=== PATIENT | male | born 1940 | race Caucasian/White ===

== ENCOUNTER 2023-03-12 09:41 | Emergency (ER) | payer SELFPAY ==
[2023-03-12] VITALS (10 sets, daily range): BP systolic 126–145; BP diastolic 64–114; PULSE 77–103; RESP 17–18; TEMP 36.6–37.3; O2SAT 96–98; BMI 28.5
--- NOTE | 2023-03-12 09:44 | ECG_ITS ---
APPROVED REPORT Exam: Resting ECG HR:99 bpm ECG Measurements Heart Rate 99 AXES QRSd 141 QRS 63 QT 365 T -25 QTc 421 Conclusion ATRIAL FIBRILLATION RIGHT BUNDLE BRANCH BLOCK [120+ ms QRS DURATION, UPRIGHT V1, 40+ ms S IN I/aVL/V4/V5/V6] ST DEVIATION AND MODERATE T-WAVE ABNORMALITY, CONSIDER LATERAL ISCHEMIA [-0.1+ mV T-WAVE IN I/aVL/V5/V6] ABNORMAL ECG UNCONFIRMED REPORT Electronically signed by : Tyler Haley MD 03/13/2023 17:45:49
--- NOTE | 2023-03-12 09:52 | CT_ITS ---
FINAL REPORT CLINICAL HISTORY: confusion FINDINGS: Axial images of the head were obtained without contrast. Coronal reformatted images were also obtained. This study was performed with techniques to keep radiation doses as low as reasonably achievable (ALARA). Individualized dose reduction techniques using automated exposure control or adjustment of mA and/or kV according to the patient''s size were employed. There is age-appropriate atrophy. There is left parietal encephalomalacia. There is no evidence of intracranial hemorrhage or mass. The ventricular size is within normal limits. There is no evidence of shift of the midline structures. No skull abnormality is seen on the bone window images. Postoperative changes are seen from right mastoidectomy. There is opacification of multiple sinuses consistent with sinusitis. IMPRESSION: Age-appropriate atrophy without acute intracranial abnormality. Sinusitis. Reviewed, Interpreted and Dictated by Dao Oakley III, MD Transcribed by Saritha Jung Authenticated and [facility]
--- NOTE | 2023-03-12 09:57 | PC.NURSE ---
notified rad of ct head order
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
--- NOTE | 2023-03-12 10:00 | PC.NURSE ---
PT TO CT
[2023-03-12 10:02] LABS: Basophils # 0.1 K/mm3 (0-0.2); Basophils % 0.8 % (0.1-2.0); Eosinophils # 0.2 K/mm3 (0.0-0.4); Eosinophils % 1.8 % (0.1-12.0); Hematocrit 42.2 % (42.0-52.0); Hemoglobin 13.1 g/dL (14.1-18.0); Lymphocytes # 0.8 K/mm3 (0.7-4.5); Lymphocytes % 9.9 % (10-50); Mean Corpuscular HGB Conc 31.1 g/dL (31.8-35.4); Mean Corpuscular Hemoglobin 27.7 pg (27.0-31.2); Mean Corpuscular Volume 89.1 fl (80-94); Mean Platelet Volume 8.4 fl (7.4-10.4); Monocytes # 0.5 K/mm3 (0.1-1.0); Monocytes % 6.4 % (1.7-9.3); Neutrophils # 6.8 K/mm3 (1.8-7.8); Neutrophils % 81.1 % (37.0-80.0); Platelet Count 260 K/mm3 (142-424); Red Blood Count 4.74 M/mm3 (4.60-6.20); Red Cell Distribution Width 15.1 % (11.5-17.5); White Blood Count 8.4 K/mm3 (4.8-10.8)
[2023-03-12 10:12] LABS: Blood Urea Nitrogen 25 mg/dl (9-20); Calcium 9.2 mg/dl (8.4-10.2); Carbon Dioxide 30 mmol/L (22.0-30.0); Chloride 105 mmol/L (98-107); Creatinine Clearance Estimated 46 mL/min (50-200); Estimated Glomerular Filt Rate 41 ml/min (>60); GFR (African American) 50 ML/MIN (>60); Glucose 130 mg/dl (74-100); Sodium 145 mmol/L (136-145)
--- NOTE | 2023-03-12 10:12 | PC.NURSE ---
PT RETURNED FROM CT
[2023-03-12 10:15] LABS: Activated Partial Thrombo Time 29.5 seconds (22.8-30.6); INR 1.27 (0.9-1.1); Prothrombin Time 13.5 seconds (10.1-12.5)
--- NOTE | 2023-03-12 14:21 | PC.NURSE ---
pt sitting up in recliner eating lunch tray at this time
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
--- NOTE | 2023-03-12 14:45 | PC.NURSE ---
pt son called at this time, states he is approx [address] to get pt
== END 2023-03-12 15:47 | disposition home or self-care (01) ==
PROVIDERS: Emergency Provider Emergency Medicine
DX: R41.82 Altered mental status, unspecified (principal); F02.B0 Dementia in other diseases classified elsewhere, moderate, without behavioral disturbance, psychotic disturbance, mood disturbance, and anxiety; G30.9 Alzheimer's disease, unspecified; Z87.891 Personal history of nicotine dependence
CPT/HCPCS: 70450; 80048; 85025; 85610; 85730; 93005; 96360; 99285; J3475